=== PATIENT | female | born 1955 | race Caucasian/White ===

== ENCOUNTER 2017-03-03 22:28 | Inpatient (IN) | payer MEDICARE, OTHER ==
[~2017-03-03] VITALS: Ht 170.2 cm; Wt 115.2 kg
[2017-03-04 03:00] VITALS: BP 143/71
[2017-03-04 04:00] VITALS: BP 157/67
--- NOTE | 2017-03-04 04:01 | NUR ---
RN OPENING NOTE RECEIVED PATIENT FROM ER. ORIGINALLY PATIENT WAS TRANSFERRED FROM [facility] WITH A CHIEF OF COMPLAINT-CHEST PAIN AND SOB. REPORT WAS GIVEN BY JUANCHO FROM [facility]. PATIENT IS ALERT/ORIENTED X 4, AMBULATORY, REPORTS CHEST TIGHTNESS ONLY WHILE WALKING 2/10, AT REST 0/10, PAIN/DISCOMFORT DOES NOT RADIATE, NO SOB OR RESPIRATORY DISTRESS NOTED, PERFORMED HEAD TO TOE ASSESSMENT PER PROTOCOL, LEFT ANTICUBITAL IV SITE, NO S/S OF INFECTION/INFILTRATION NOTED, GOOD BLOOD RETURN, CALL LIGHT WITHIN REACH, BED IN LOCK POSITION, NOTIFIED WILY NICHOLAS RG NEW ADMISSION, WILL CONTINUE TO MONITOR
[2017-03-04] MEDS ORDERED: ACETAMINOPHEN 325 MG TABLET PO PRN (05:30)
[2017-03-04] MEDS ORDERED: HYDROCODONE/APAP 5/325MG 1 EACH TABLET PO PRN (05:30)
[2017-03-04] MEDS ORDERED: NITROGLYCERIN 0.4 MG/TAB BOTTLE SL PRN (05:30)
[2017-03-04] MEDS ORDERED: hydrALAZINE HCL 10 MG TABLET PO PRN (05:30)
[2017-03-04] MEDS ORDERED: ZOLPIDEM TARTRATE 5 MG TABLET PO PRN (05:30)
[2017-03-04] MEDS ORDERED: Z GUARD REMEDY 2 OZ OINT TP PRN (05:30)
[2017-03-04] MEDS ORDERED: MAG HYDROX/AL HYDROX/SIMETH 30 ML UDC PO PRN (05:30)
[2017-03-04] MEDS ORDERED: MORPHINE SULFATE INJ 2 MG/ML DISP.SYRIN IV PRN (05:30)
[2017-03-04] MEDS ORDERED: ONDANSETRON HCL/PF 4 MG/2 ML VIAL IVP PRN (05:30)
--- NOTE | 2017-03-04 07:15 | NUR ---
RN INITIAL NOTES: REC'D PT AWAKE ON BED, NOT IN ANY DISTRESS, A/O X 4, DENIES ANY CHEST PAIN/DISCOMFORT. ON ROOM AIR, NO SOB. ON TELEMONITOR, SR. HAS PATENT & INTACT L AC G20, SL, FLUSHING WELL. PROVIDED COMFORT & SAFETY MEASURES. BED KEPT LOW & IN LOCKED POS. CALL LIGHT PLACED W/IN REACH. PT KEPT ON NPO INCLUDING MEDS FOR POSSIBLE CARDIAC ANGIOGRAM PROCEDURE AT [facility]. WILL CONTINUE TO MONITOR AND ATTEND PT NEEDS.
--- NOTE | 2017-03-04 07:38 | NUR ---
RN CLOSING NOTE LEFT PATIENT IN STABLE CONDITION, ALERT ORIENTED, NO PAIN OR DISCOMFORT, RESTED WELL, NO ACUTE RESPIRATORY DISTRESS NOTED, WAS SEEN NU WILY [employer] FACULTY MEMBER, AND DR CHENG, VITAL SIGNS STABLE, CALL LIGHT WITHIN REACH, BED IN THE LOW POSITION
[2017-03-04 08:00] VITALS: BP 133/67
[2017-03-04 08:26] LABS: BASOPHILS % (AUTO) 0.4 % (0.0-2.0); EOSINOPHILS # (AUTO) 0.2 /CMM (0.0-0.7); EOSINOPHILS % (AUTO) 3.1 % (0.0-6.0); HEMATOCRIT 41 % (33-45); HEMOGLOBIN 14.1 g/dL (11.5-14.8); LYMPHOCYTES # (AUTO) 1.6 /CMM (0.8-4.8); LYMPHOCYTES % (AUTO) 30.2 % (20.0-44.0); MEAN CORPUSCULAR HEMOGLOBIN 29 PG (26.0-33.0); MEAN CORPUSCULAR HGB CONC 35 g/dl (31.0-36.0); MEAN CORPUSCULAR VOLUME 84 fL (82-100); MONOCYTES # (AUTO) 0.3 /CMM (0.1-1.30); MONOCYTES % (AUTO) 6.1 % (2.0-12.0); NEUTROPHILS # (AUTO) 3.1 /CMM (1.8-8.9); NEUTROPHILS % (AUTO) 60.2 % (43.0-81.0); PLATELET COUNT (AUTO) 182 /CMM (150-450); RDW COEFFICIENT OF VARIATION 12.2 (11.5-15.0); RED BLOOD CELL COUNT(AUTO) 4.83 MIL/uL (4.0-5.2); WHITE BLOOD COUNT (AUTO) 5.2 K/uL (4.3-11.0)
[2017-03-04 08:52] LABS: CALCIUM, SERUM 9.1 mg/dL (8.5-10.1); CREATININE 0.5 mg/dL (0.6-1.3); MAGNESIUM 1.8 mg/dL (1.8-2.4); PHOSPHORUS 4.3 mg/dL (2.5-4.9); POTASSIUM 3.1 mmol/L (3.5-5.1)
[2017-03-04] MEDS ORDERED: ATORVASTATIN 40 MG TABLET PO SCH (09:00)
[2017-03-04] MEDS ORDERED: VALSARTAN 80 MG TABLET PO SCH (09:00)
[2017-03-04] MEDS ORDERED: ASPIRIN 81 MG TAB.CHEW PO SCH (09:00)
[2017-03-04] MEDS ORDERED: METOPROLOL TARTRATE 50 MG TABLET PO SCH (09:00)
--- NOTE | 2017-03-04 09:00 | NUR ---
RN NOTES: CONFIRMED W/ DR. CHENG THAT PT IS SCHEDULED FOR CARDIAC ANGIOGRAM AT [facility].
[2017-03-04] MEDS ORDERED: AMLO2.5T PO (09:16)
[2017-03-04] MEDS ORDERED: LOSA100T15 PO (09:16)
[2017-03-04] MEDS ORDERED: SIMV20TA6 PO (10:05)
--- NOTE | 2017-03-04 10:57 | NUR ---
RN NOTES: CALLED [facility], SPOKE W/ DEMARCUS AT [employer]ARDIAC [employer] AND CONFIRMED SCHEDULED CARDIAC ANGIOGRAM OF THE PT AT 1PM. AMBULANCE ARRANGED C/O CM, PAN WASHER AT 11AM. FAMILY AND PT MADE AWARE.
--- NOTE | 2017-03-04 11:00 | NUR ---
DISABILITY REPRESENTATIVE NOTES: PT TRANSFERRED TO [facility] CARDIAC MUSIC MINISTRIES DIRECTOR FOR CARDIAC ANGIOGRAM PROCEDURE ORDERED, REPORT GIVEN TO DEMARCUS. DC DOCUMENTS AND INSTRUCTION PROVIDED TO THE PT W/ VERBALIZATION OF UNDERSTANDING. IV LINE ACCESS KEPT PATENT & INTACT W/ NO S/SX OF INFECTION/INFILTRATION NOTED. PT DENIES CHEST PAIN/DISCOMFORT UPON TRANSFER. NO CONCERN IDENTIFIED AT THIS TIME. ALL BELONGINGS SENT W/ THE PT. PT LEFT VIA GURNEY IN GUARDED CONDITION ACCOMPANIED BY EMT AND FAMILY. PROCEDURE SCHEDULED AT 1PM. PER DEMARCUS FROM [facility] TO KEEP ROOM IF EVER PT NEEDS TO COME BACK IN THE FACILITY, THEY WILL CALL RN BACK. CN MADE AWARE.
[2017-03-04] MEDS: POTASSIUM CL. PREMIX PERIPHER. 50 ML IV SCH ×4 (12:30→15:30)
--- NOTE | 2017-03-04 13:12 | NUR ---
RN NOTES: REC'D REPORT FROM KAYLIN FROM [facility]. PT TOLERATED WELL THE CARDIAC ANGIOGRAM C/O DR. SAHW. VS WNL. NO FINDINGS SEEN. PER MD, PT TO BE SENT BACK HERE AT [facility] RM 109 AND MONITOR R RADIAL FOR ANY SIGN OF BLEEDING/HEMATOMA. CN MADE AWARE.
--- NOTE | 2017-03-04 15:45 | NUR ---
RN NOTES: PT CAME BACK FROM [facility] IN STABLE CONDITION VIA GURNEY ACCOMPANIED BY EMT, ROOM 109. PT IS A/O X 4, DENIES ANY CHEST PAIN. NOTED BANDAGE ON R WRIST S/P CARDIAC ANGIOGRAM, NO BLEEDING OR HEMATOMA ON THE SITE. PER PT, SHE WANTED TO GO HOME TODAY. DR. CARDOZA MADE AWARE & SAID OKAY TO DC HER EVEN IF K IS 3.1. DR. CHENG MADE AWARE WELL W/ ORDERS TO SEE HIM IN 1 WEEK. PT INFORMED.
[2017-03-04 16:00] VITALS: BP 134/65
[2017-03-04] MEDS ORDERED: ASPI-1169 PO (16:43)
--- NOTE | 2017-03-04 16:58 | NUR ---
PHYSICIAN GENERAL PRACTICE NOTES: PT DC'D TO HOME, SELF CARE ORDERED AND REQUESTED BY PT. DC INSTRUCTIONS AND DOCUMENTS PROVIDED & EXPLAINED TO THE PT W/ VERBALIZATION OF UNDERSTANDING. FAMILY AT BEDSIDE. IV LINE ACCESS REMOVED, PRESSURE DRESSING APPLIED. REINFORCED HEALTH TEACHING ABOUT TAKING CARE OF THE RIGHT RADIAL S/P CARDIAC ANGIOGRAM, NO BLEEDING/HEMATOMA NOTED. NO CONCERNS IDENTIFIED AT THIS TIME. PT LEFT FACILITY IN STABLE CONDITION AMBULATORY W/ STEADY GAIT ACCOMPANIED BY DTR & GRANDSON.
[2017-03-04] MEDS ORDERED: SIMVASTATIN 20 MG TABLET PO SCH (18:00)
[2017-03-05] MEDS ORDERED: AMLODIPINE BESYLATE 2.5 MG TABLET PO SCH (09:00)
[2017-03-05] MEDS ORDERED: LOSARTAN POTASSIUM 50 MG TABLET PO SCH (09:00)
== END 2017-03-04 17:00 | disposition home or self-care (01) | DRG 287 ==
LOC: TELE1 03-04 02:44
PROVIDERS: ADMIT Nurse Practitioner Acute Care; ATTEND Nurse Practitioner Acute Care
PROC: B205YZZ Plain Radiography of Left Heart using Other Contrast (ICD-10-PCS; principal; 2017-03-04)
PROC: B201YZZ Plain Radiography of Multiple Coronary Arteries using Other Contrast (ICD-10-PCS; 2017-03-04)
DX: I25.110 Atherosclerotic heart disease of native coronary artery with unstable angina pectoris (principal); E66.9 Obesity, unspecified; E78.5 Hyperlipidemia, unspecified; E87.6 Hypokalemia; I10 Essential (primary) hypertension; Z78.0 Asymptomatic menopausal state; G47.33 Obstructive sleep apnea (adult) (pediatric); Z68.39 Body mass index [BMI] 39.0-39.9, adult
CPT/HCPCS: 36415; 71010-TC; 80048-TC; 83735-TC; 84100-TC; 84484-TC; 85025-TC; J3480

== ENCOUNTER → 2019-01-09 | Outpatient (CLI) | payer MEDICARE, OTHER ==
[~2019-01-09] MED LIST: AMLO2.5T4 PO; ASPI-1169 PO; LOSA100T31 PO; SIMV-46 PO
== END | disposition home or self-care (01) ==
LOC: MSC 12:15
PROVIDERS: ATTEND Anesthesiology
DX: G89.4 Chronic pain syndrome (principal); M25.512 Pain in left shoulder; M54.16 Radiculopathy, lumbar region; M62.830 Muscle spasm of back; M40.299 Other kyphosis, site unspecified; M25.562 Pain in left knee; M25.561 Pain in right knee; Z79.899 Other long term (current) drug therapy; Z79.1 Long term (current) use of non-steroidal anti-inflammatories (NSAID)

== ENCOUNTER → 2019-03-20 | Outpatient (CLI) | payer MEDICARE, OTHER | END | disposition home or self-care (01) | LOC: MSC 10:30 | PROVIDERS: ATTEND Anesthesiology | DX: M54.16 Radiculopathy, lumbar region (principal); M62.830 Muscle spasm of back; M40.299 Other kyphosis, site unspecified; G89.4 Chronic pain syndrome; M25.562 Pain in left knee; M25.561 Pain in right knee; M25.512 Pain in left shoulder; Z79.891 Long term (current) use of opiate analgesic; Z79.1 Long term (current) use of non-steroidal anti-inflammatories (NSAID) ==

== ENCOUNTER → 2019-07-10 | Outpatient (CLI) | payer MEDICARE, OTHER | END | disposition home or self-care (01) | LOC: MSC 11:00 | PROVIDERS: ATTEND Anesthesiology | DX: M54.16 Radiculopathy, lumbar region (principal); M62.830 Muscle spasm of back; M40.299 Other kyphosis, site unspecified; G89.4 Chronic pain syndrome; M25.562 Pain in left knee; M25.561 Pain in right knee; M25.512 Pain in left shoulder; R03.0 Elevated blood-pressure reading, without diagnosis of hypertension; K21.9 Gastro-esophageal reflux disease without esophagitis; Z79.891 Long term (current) use of opiate analgesic; Z79.1 Long term (current) use of non-steroidal anti-inflammatories (NSAID) ==

== ENCOUNTER 2019-08-21 10:50 | Outpatient (CLI) | payer MEDICARE, OTHER | END 2019-08-21 23:59 | disposition home or self-care (01) | LOC: MSC 10:50 | PROVIDERS: ATTEND Anesthesiology | DX: M25.512 Pain in left shoulder (principal); M54.16 Radiculopathy, lumbar region; M62.830 Muscle spasm of back; M40.299 Other kyphosis, site unspecified; G89.4 Chronic pain syndrome; M25.562 Pain in left knee; M25.561 Pain in right knee; R03.0 Elevated blood-pressure reading, without diagnosis of hypertension; K21.9 Gastro-esophageal reflux disease without esophagitis; Z79.891 Long term (current) use of opiate analgesic; Z79.1 Long term (current) use of non-steroidal anti-inflammatories (NSAID) ==

== ENCOUNTER → 2019-09-11 | Outpatient (CLI) | payer MEDICARE, OTHER | END | disposition home or self-care (01) | LOC: MSC 12:20 | PROVIDERS: ATTEND Anesthesiology | DX: G89.4 Chronic pain syndrome (principal); M25.512 Pain in left shoulder; M54.16 Radiculopathy, lumbar region; M62.830 Muscle spasm of back; M40.299 Other kyphosis, site unspecified; M25.562 Pain in left knee; M25.561 Pain in right knee; I10 Essential (primary) hypertension; K21.9 Gastro-esophageal reflux disease without esophagitis; Z79.891 Long term (current) use of opiate analgesic; Z79.1 Long term (current) use of non-steroidal anti-inflammatories (NSAID) ==